=== PATIENT | male | born 1955 | race Caucasian/White ===

== ENCOUNTER 2017-06-23 10:40 | Day surgery (SDC) | payer BC ==
[2017-06-20 11:23] VITALS: BMI 36.6
[2017-06-23 10:55] VITALS: TEMP 97.5
[2017-06-23] MEDS ORDERED: LIDOCAINE 1% 20 ML VIAL (10MG/ML) FOR IV START INTRADERMA ONE (11:06)
[2017-06-23] MEDS: LACTATED RINGERS 1,000 ML IV SCH ×2 (11:06→11:38)
[2017-06-23] MEDS ORDERED: LIDOCAINE 1% INJ 10MG/ML (20 ML MDV) ONE (11:40)
[2017-06-23] MEDS ORDERED: MIDAZOLAM 2 MG/2 ML VIAL ONE (11:40)
[2017-06-23] MEDS ORDERED: PROPOFOL 10 MG/ML 20 ML VIAL IV ONE (11:40)
--- NOTE | 2017-06-23 12:08 | P.PCN ---
Date of Procedure: 06/23/17 Preoperative Diagnosis: Postoperative Diagnosis: Procedure(s) Performed: Procedure: Total colonoscopy. Preoperative diagnosis: Screening for neoplasia. Postoperative diagnosis: 1. Diverticulosis with no evidence of acute diverticulitis or strictures. 2. Internal hemorrhoids without evidence of bleeding. Preparation: HalfLytely prep. Sedation: Was provided by anesthesia. Brief clinical history: The patient is a 62-year-old male who was scheduled for this evaluation because of family history of colon cancer in his father who was diagnosed at age 55. The patient had colonoscopy in February 2012 that showed sigmoid diverticulosis. At this time, he has no abdominal complaints, bleeding or anemia. Procedure: With the patient on his left lateral decubitus position and after informed consent and adequate sedation, the perianal area was inspected and it did not show any fissures or fistulas. There were no masses felt on digital rectal examination. The Olympus CFQ 160L video colonoscope was then inserted in the rectum in the usual fashion and advanced to the cecum. There were multiple diverticular orifices seen scattered along the length of the bowel more evident on the left side with no evidence of acute diverticulitis or strictures. No polyps or tumors were seen. I retroflexed the endoscope in the rectum before the endoscope was withdrawn. Low-grade internal hemorrhoids were noted with no evidence of bleeding. The patient tolerated the procedure well. Plan: The patient was reassured. Discussed dietary measures. I recommended repeat exam in 5 years. He will follow up with you as planned. Implants: Indications for Procedure: Operative Findings: Description of Procedure:
[2017-06-23 12:25] VITALS: BP 122/74; PULSE 65; RESP 18
== END 2017-06-23 12:45 | disposition home or self-care (01) ==
LOC: ORWHC2ENDO 10:40
DX: Z12.11 Encounter for screening for malignant neoplasm of colon (principal); K57.30 Diverticulosis of large intestine without perforation or abscess without bleeding; K64.8 Other hemorrhoids; Z80.0 Family history of malignant neoplasm of digestive organs; K21.9 Gastro-esophageal reflux disease without esophagitis; G47.33 Obstructive sleep apnea (adult) (pediatric); M10.9 Gout, unspecified; I10 Essential (primary) hypertension; E66.9 Obesity, unspecified; Z85.819 Personal history of malignant neoplasm of unspecified site of lip, oral cavity, and pharynx; Z99.89 Dependence on other enabling machines and devices; Z79.899 Other long term (current) drug therapy

== ENCOUNTER 2019-07-02 06:14 | Day surgery (SDC) | payer BC ==
[2019-07-01 09:06] VITALS: BMI 35.2
[~2019-07-02 06:14] MED LIST: DEXAMETHASONE SOD PHOSPHATE 10 MG/ML 1 ML VIAL IV ONE; HEPARIN SODIUM,PORCINE 5,000 UNIT/ML 1 ML VIAL SQ ONE; HYDROmorphone 0.5 MG/0.5 ML SYRINGE IVP PRN; LACTATED RINGERS 1,000 ML IV SCH; MIDAZOLAM 2 MG/2 ML VIAL IV PRN; ONDANSETRON 4 MG/2 ML VIAL IVP ONE; SCOPOLAMINE 1.5MG/72HR PATCH TRANSDERM ONE
[2019-07-02] MEDS ORDERED: LIDOCAINE 1% 20 ML VIAL (10MG/ML) FOR IV START INTRADERMA ONE (07:01)
--- NOTE | 2019-07-02 07:39 | P.GSHP ---
History of Present Illness H&P Date: 07/02/19 Chief Complaint: Umbilical hernia Patient seen in the office in April. Patient has complaints of a painful hernia at the umbilicus. This does not fluctuate significantly in size throughout the day. This has gradually increased in size however over the last several months. No nausea or vomiting. Past Medical History Past Medical History: Cancer, GERD/Reflux, Prostate Disorder, Sleep Apnea/CPAP/BIPAP Additional Past Medical History / Comment(s): no current cpap,hayfever,gout, ca lip History of Any Multi-Drug Resistant Organisms: None Reported Past Surgical History: Tonsillectomy Additional Past Surgical History / Comment(s): lip sugery ca removed,sinus surg,hydrocele,eyelids Past Anesthesia/Blood Transfusion Reactions: No Reported Reaction Additional Past Anesthesia/Blood Transfusion Reaction / Comment(s): no hx blood transfusion Past Psychological History: No Psychological Hx Reported Smoking Status: Never smoker Past Alcohol Use History: Occasional Past Drug Use History: None Reported - Past Family History Father Family Medical History: Cancer Additional Family Medical History / Comment(s): colon Mother Family Medical History: Cancer Additional Family Medical History / Comment(s): breast Medications and Allergies Home Medications Medication Instructions Recorded Confirmed Type Allopurinol [Zyloprim] 300 mg PO DAILY 06/20/17 07/02/19 History Montelukast Sodium [Singulair] 10 mg PO QAM 06/20/17 07/02/19 History Terazosin HCl [Hytrin] 10 mg PO HS 06/20/17 07/02/19 History Ranitidine HCl 150 mg PO BID 07/01/19 07/02/19 History Allergies Allergy/AdvReac Type Severity Reaction Status Date / Time No Known Allergies Allergy Verified 07/01/19 09:00 Surgical - Exam Vital Signs Temp Pulse Resp BP Pulse Ox 97.8 F 56 L 18 134/78 97 07/02/19 06:55 07/02/19 06:55 07/02/19 06:55 07/02/19 06:55 07/02/19 06:55 Physical exam: General: Well-developed, well-nourished HEENT: Normocephalic, sclerae nonicteric Abdomen: Nontender, nondistended, incarcerated umbilical hernia Extremities: No edema Neuro: Alert and oriented Assessment and Plan (1) Incarcerated umbilical hernia Narrative/Plan: Will proceed with repair incarcerated umbilical hernia with probable mesh. Risks of bleeding, infection, recurrence, bladder and bowel injury, numbness, nerve injury were discussed with the patient. The patient understands and wishes to proceed. Current Visit: Yes Status: Acute Code(s): K42.0 - UMBILICAL HERNIA WITH OBSTRUCTION, WITHOUT GANGRENE SNOMED Code(s): 582649474
[2019-07-02] MEDS ORDERED: NEOSTIGMINE 1 MG/ML 10 ML VIAL ONE (07:58)
[2019-07-02] MEDS ORDERED: MIDAZOLAM 2 MG/2 ML VIAL ONE (07:58)
[2019-07-02] MEDS ORDERED: LIDOCAINE 1% INJ 10MG/ML (20 ML MDV) ONE (07:58)
[2019-07-02] MEDS ORDERED: SUCCINYLCHOLINE CHLORIDE VIAL 200 MG/10 ML VIAL IV ONE (07:58)
[2019-07-02] MEDS ORDERED: fentaNYL (PF) 50 MCG/ML 2 ML AMP ONE (07:58)
[2019-07-02] MEDS ORDERED: ROCURONIUM BROMIDE 10 MG/ML 10 ML VIAL IV ONE (07:58)
[2019-07-02] MEDS ORDERED: GLYCOPYRROLATE 0.2 MG/ML 2 ML VIAL ONE (07:58)
[2019-07-02] MEDS ORDERED: PROPOFOL 10 MG/ML 20 ML VIAL IV ONE (07:58)
[2019-07-02] MEDS ORDERED: BUPIVACAINE (PF) 0.25% 30 ML VIAL SQ ONE (08:28)
[2019-07-02] MEDS ORDERED: HYDROcodone/APAP 5-325MG 1 EACH TAB PO PRN (09:08)
[2019-07-02] MEDS ORDERED: NALOXONE 0.4 MG/ML 1 ML VIAL IV PRN (09:08)
--- NOTE | 2019-07-02 09:10 | P.OP ---
Date of Procedure: 07/02/19 Procedure(s) Performed: PREOPERATIVE DIAGNOSIS: Incarcerated umbilical hernia POSTOPERATIVE DIAGNOSIS: Same PROCEDURE: Umbilical herniorrhaphy with mesh SURGEON: Sharon EBL: Minimal ANESTHESIA: General COMPLICATIONS: None OPERATIVE PROCEDURE: The patient was placed in the operating table in the supine position. A periumbilical incision was made using the scalpel. The subcutaneous tissues were dissected bluntly. The hernia sac was identified. The umbilical attachments to the fascia were divided using electrocautery. The hernia sac was excised. The hernia sac was sent to pathology. The preperitoneal space was bluntly dissected. We did not enter the peritoneal cavity. The 4.3 cm ventral ex mesh was placed beneath the fascia and sutured in place using trans-fascial 0 Ethibond sutures. The defect was closed using interrupted vest over pants 0 Ethibond sutures. The subcutaneous tissues were reapproximated using inverted 3-0 Vicryl sutures. The umbilicus was tacked back down to the fascia using a 3-0 Vicryl suture. The skin was closed using 4-0 Monocryl sutures. Skin glue and sterile dressings were then applied. DISPOSITION: Stable to recovery room
[2019-07-02 09:17] VITALS: TEMP 97.7
[2019-07-02] MEDS ORDERED: LACTATED RINGERS 1,000 ML IV ONE ×2 (09:45)
[2019-07-02] MEDS ORDERED: KETOROLAC 30 MG/ML 1 ML VIAL IVP ONE (09:49)
[2019-07-02] MEDS ORDERED: HYDROcodone/APAP 5-325MG 1 EACH TAB PO ONE (10:27)
[2019-07-02 10:43] VITALS: BP 117/74; PULSE 59; RESP 16
== END 2019-07-02 11:30 | disposition home or self-care (01) ==
LOC: OR 06:14
PROVIDERS: ATTEND Surgery
DX: K42.0 Umbilical hernia with obstruction, without gangrene (principal); K21.9 Gastro-esophageal reflux disease without esophagitis; G47.30 Sleep apnea, unspecified; M10.9 Gout, unspecified; N40.0 Benign prostatic hyperplasia without lower urinary tract symptoms; Z85.828 Personal history of other malignant neoplasm of skin; Z79.899 Other long term (current) drug therapy; Z91.048 Other nonmedicinal substance allergy status
CPT/HCPCS: 88302; 49587; C1781; J2250; J0330; J1644; J1100; J2710; J0690; J2405; J2001; J3010; J1885; J2704; J1170

== ENCOUNTER → 2021-03-15 | Outpatient (CLI) | payer BC ==
--- NOTE | 2021-03-15 08:53 | US ---
EXAMINATION TYPE: US carotid duplex BILAT DATE OF EXAM: 03/15/2021 COMPARISON: NONE CLINICAL HISTORY: R42. Dizziness. Dizziness x couple weeks EXAM MEASUREMENTS: RIGHT: Peak Systolic Velocity (PSV) cm/sec ----- Right CCA: 54.2 ----- Right ICA: 55.2 ----- Right ECA: 83.0 ICA/CCA ratio: 1.0 RIGHT: End Diastole cm/sec ----- Right CCA: 14.0 ----- Right ICA: 18.7 ----- Right ECA: 12.1 LEFT: Peak Systolic Velocity (PSV) cm/sec ----- Left CCA: 68.0 ----- Left ICA: 58.3 ----- Left ECA: 78.2 ICA/CCA ratio: 0.9 LEFT: End Diastole cm/sec ----- Left CCA: 14.1 ----- Left ICA: 23.3 ----- Left ECA: 7.3 VERTEBRALS (direction of flow): Right Vertebral: Antegrade Left Vertebral: Antegrade Rhythm: Normal No elevated velocities, no significant stenosis. IMPRESSION: 1. No significant hemodynamic stenosis as visualized. Criteria for Assigning % of Stenosis / Diameter reduction (Estimation based on the indirect measurements of the internal carotid artery velocities (ICA PSV). 1. Normal (no stenosis)=ICA PSV < 125 cm/s: ratio < 2.0: ICA EDV<40 cm/s. 2. Less than 50% stenosis=ICA PSV < 125 cm/s: ratio < 2.0: ICA EDV<40 cm/s. 3. 50 to 69% stenosis=ICA PSV of 125 to 230 cm/s: ration 2.0 ? 4.0: ICA EDV 40-100 cm/s. 4. Greater than 70% stenosis to near occlusion= ICA PSV > 230 cm/s: ratio > 4.0: ICA EDV > 100 cm/s. 5. Near occlusion= ICA PSV velocities may be low or undetectable: variable ratio and ICA EDV. 6. Total occlusion=unable to detect flow.
== END | disposition home or self-care (01) ==
LOC: RADUSWWP 08:06
PROVIDERS: ATTEND Family Medicine
DX: R42 Dizziness and giddiness (principal)
CPT/HCPCS: 93880

== ENCOUNTER 2022-03-20 08:58 | Day surgery (SDC) | payer BC ==
[2022-03-15 14:22] VITALS: BMI 35.2
[~2022-03-20 08:58] MED LIST changes: -DEXAMETHASONE SOD PHOSPHATE 10 MG/ML 1 ML VIAL IV ONE; -HEPARIN SODIUM,PORCINE 5,000 UNIT/ML 1 ML VIAL SQ ONE; -HYDROmorphone 0.5 MG/0.5 ML SYRINGE IVP PRN; -MIDAZOLAM 2 MG/2 ML VIAL IV PRN; -ONDANSETRON 4 MG/2 ML VIAL IVP ONE; -SCOPOLAMINE 1.5MG/72HR PATCH TRANSDERM ONE
[2022-03-20 09:31] VITALS: TEMP 99.1
[2022-03-20] MEDS ORDERED: LIDOCAINE 1% (10MG/ML) FOR IV START INTRADERMA ONE (09:44)
[2022-03-20] MEDS ORDERED: PROPOFOL 10 MG/ML 20 ML VIAL IV ONE (09:55)
--- NOTE | 2022-03-20 10:15 | P.PCN ---
Date of Procedure: 03/20/22 Procedure(s) Performed: BRIEF HISTORY: Patient is a 66-year-old pleasant white male scheduled for an elective colonoscopy as a part of screening for colon cancer. He also has family history of colon cancer diagnosed in her father at age 54. PROCEDURE PERFORMED: Colonoscopy with biopsy. PREOPERATIVE DIAGNOSIS: Screening for colon cancer/family history of colon cancer. IV sedation per Anesthesia. PROCEDURE: After informed consent was obtained, the patient, was brought into the endoscopy unit. IV sedation was administered by Anesthesia under continuous monitoring. Digital rectal examination was normal. Initially the Olympus CF-160 flexible video colonoscope was then inserted in the rectum, gradually advanced into the cecum without any difficulty. Careful examination was performed as the scope was gradually being withdrawn. Ileocecal valve and the appendiceal orifice were visualized and appeared normal. Prep was excellent. Mucosa of the cecum, had a 3 mm polyp that was removed by cold biopsy. Rest of the ascending colon, transverse colon, descending colon, sigmoid colon, and rectum appeared normal. The distal rectum there was a 4 mm polyp that was moved by cold biopsy. Scattered sigmoid diverticulosis. Retroflexion was performed in the rectum and no lesions were seen. The patient tolerated the procedure well. IMPRESSION: 3 mm cecal polyp status post cold biopsy 4 mm rectal polyp status post cold biopsy Scattered sigmoid diverticulosis RECOMMENDATIONS: Findings of this examination were discussed with the patient as well as a his family. He was advised to follow with the biopsy results. If the biopsy reveals adenoma he can have a repeat colonoscopy in 5 years..
[2022-03-20 10:28] VITALS: RESP 20
[2022-03-20 10:47] VITALS: BP 135/83; PULSE 52
== END 2022-03-20 10:48 | disposition home or self-care (01) ==
LOC: ORWHC2ENDO 08:58
PROVIDERS: ATTEND Internal Medicine Gastroenterology
DX: Z12.11 Encounter for screening for malignant neoplasm of colon (principal); D12.8 Benign neoplasm of rectum; K57.30 Diverticulosis of large intestine without perforation or abscess without bleeding; Z80.0 Family history of malignant neoplasm of digestive organs; G47.33 Obstructive sleep apnea (adult) (pediatric); K21.9 Gastro-esophageal reflux disease without esophagitis; Z79.899 Other long term (current) drug therapy
CPT/HCPCS: 88305; 45380; J2704

== ENCOUNTER → 2025-04-27 | Outpatient (CLI) | payer MEDICARE ==
--- NOTE | 2025-04-27 10:20 | US ---
EXAMINATION TYPE: US abdomen complete DATE OF EXAM: 04/27/2025 COMPARISON: NONE CLINICAL INDICATION: Male, 69 years old with history of R94.5 ABNORMAL LFT'S; TECHNIQUE: Grayscale and color Doppler imaging of the abdomen was performed. FINDINGS: EXAM MEASUREMENTS: Liver Length: 15.2cm Gallbladder Wall: 0.2cm CBD: 0.3cm color Doppler imaging was utilized to isolate the common bile duct for measurement. Spleen: 17.0x7.4x7.3cm Right Kidney: 118x6.7x6.4cm Left Kidney: 12.5x4.7x5.4cm EXECUTIVE COACH NOTES: very limited scan due to overlying bowel/gas & pt body habitus Pancreas: Obscured by bowel gas Liver: Increased attenuation, decreased visualization of vessels suggestive of fatty infiltrate, dif ficult to penetrate * Hyperechoic area seen within RT lobe: 6.6x6.4x6.7cm, slight vascularity surrounding area * Hypoechoic area seen within RT lobe: 1.4x1.2x1.2cm ?possibly correlating to fatty liver * Cystic area seen within Lt lobe: 2.2x2.1x1.8cm Gallbladder: No stones seen, slightly obscured by bowel Evidence for sonographic Bunn's sign: No CBD: partially obscured by bowel, wnl as best seen Spleen: Enlarged, Hypoechoic area seen adj to spleen: 2.0x1.8x2.0cm compatible with splenule. Right Kidney: wnl, No hydronephrosis, calculi or masses seen Left Kidney: Anechoic area seen: 1.6x1.5x1.5cm Upper IVC: wnl at prox, mid/distal: obscured by bowel Abd Aorta: not well visualized, wnl as best visualized, partially obscured by bowel IMPRESSION: 1. Hepatic mass within the right hepatic lobe. Further evaluation with MRI liver mass protocol recom mended. 2. Hepatic steatosis. 3. Hepatic cyst measuring up to 2.2 cm. 4. Indeterminate hypoechoic lesion measuring up to 1.4 centers attention follow-up MRI for findings in #1. [facility], , 04/27/2025 10:18 AM
== END | disposition home or self-care (01) ==
LOC: RADUSWWP 08:36
PROVIDERS: ATTEND Family Medicine
DX: K76.0 Fatty (change of) liver, not elsewhere classified (principal); K76.89 Other specified diseases of liver; R16.0 Hepatomegaly, not elsewhere classified; R94.5 Abnormal results of liver function studies
CPT/HCPCS: 76700

== ENCOUNTER → 2025-05-24 | Outpatient (CLI) | payer MEDICARE ==
--- NOTE | 2025-05-26 09:33 | MR ---
EXAMINATION TYPE: MR abdomen wo/w con DATE OF EXAM: 05/24/2025 6:48 PM INDICATION: Patient age:Male; 69 years old; Reason for study: D49.0 NEOPLASM OF UNSPECIFIED BEHAVIOR OF DIGESTIV; PHH. COMPARISON: Abdominal ultrasound 04/27/2025. TECHNIQUE: Multiplanar multi-sequence imaging was performed without and with IV contrast. The patie nt was given 11 ccs of Gadobutrol intravenously and dynamic imaging was performed. Post IV contrast s ubtraction images were also submitted for review. FINDINGS: LOWER CHEST: Cardiomegaly. Elevation of the right hemidiaphragm. ABDOMEN Liver: Subtle surface nodularity suggested. Diffuse fatty infiltration. Dominant right hepatic lobe s egment 6/7 heterogenous enhancing mass with regions of internal fluid. This measures 7.8 x 7.2 cm (se velia 701, image 68). There is an adjacent abutting peripheral enhancing lesion more anteriorly within segment 8 measuring 2.8 cm (series 701, image 69). This demonstrates stricture diffusion. Additional segment 8 peripherally enhancing lesion with washout measuring 2.2 cm (series 1101, image 583). Segm ent 4B enhancing 0.8 cm focus with washout (series 1102, image 104). 1.2 cm T2 hyperintense periphera lly enhancing cystic lesion within segment 7. Portal venous system is patent. Gallbladder and Bile ducts: Unremarkable. Pancreas: Unremarkable. Spleen: Enlarged measuring 15.6 cm in CC dimension. Adrenal glands: Unremarkable. Kidneys: No hydronephrosis. Simple left renal lower pole thin-walled nonenhancing cyst measuring 1.8 cm. Stomach and Bowel: No evidence of bowel obstruction. Colonic diverticulosis without evidence for acut e diverticulitis. Peritoneum: No evidence of pneumoperitoneum or free fluid. There are 2 abutting enlarged peripheral enhancing centrally necrotic appearing masses between the pancreatic head and IVC measuring 9.0 x 4.7 cm (series 701, image 41). Demonstrate restricted diffusion. Several enlarged gastrohepatic and efra portal lymph nodes identified measuring up to 1.6 cm. Few subcentimeter paraesophageal lymph nodes id entified. Vasculature: Unremarkable. No aortic aneurysm. Abdominal wall: Unremarkable. Musculoskeletal: The osseous structures appear intact. IMPRESSION: 1. Few hepatic lesions with a dominant mass measuring up to 7.8 cm corresponding to prior ultrasound . Subtle surface nodularity to the liver suggesting possible underlying cirrhosis. These findings are concerning for metastasis and/or hepatocellular carcinoma with metastasis. Tissue sampling is recomm ended. 2. Additionally there are 2 large necrotic appearing periportal masses likely representing metastasi s with additional smaller but enlarged gastrohepatic lymph nodes likely representing metastasis. 3. Splenomegaly. [facility], , 05/26/2025 9:31 AM
== END | disposition home or self-care (01) ==
LOC: RADMRIMAIN 17:48
PROVIDERS: ATTEND Family Medicine
DX: D49.0 Neoplasm of unspecified behavior of digestive system (principal); K76.89 Other specified diseases of liver; R16.1 Splenomegaly, not elsewhere classified
CPT/HCPCS: 74183; A9585

== ENCOUNTER → 2025-06-09 | Outpatient (CLI) | payer MEDICARE ==
[2025-06-09 15:29] LABS: HCT 42.9 % (39.6-50.0); HGB 14.1 g/dL (13.0-17.0); MCH 32.2 pg (27.0-32.0); MCHC 32.9 g/dL (32.0-37.0); MCV 97.9 FL (80.0-97.0); NRBC Per 100 WBC 0 X 10*3/uL (0.00-0.01); Platelet Count 98 X 10*3/uL (140-440); RBC 4.38 X 10*6/uL (4.40-5.60); RDW 13.3 % (11.5-14.5); WBC 7.00 X 10*3/uL (4.50-10.00)
[2025-06-09 15:47] LABS: ALT 51 U/L (10-49); AST 49 U/L (14-35); Albumin 3.8 g/dL (3.8-4.9); Albumin/Globulin Ratio 1.31 Ratio (1.60-3.17); Alkaline Phosphatase 105 U/L (41-126); Anion Gap 9.80 mmol/L (4.00-12.00); BUN/Creat Ratio 17.44 Ratio (12.00-20.00); Blood Urea Nitrogen 15.7 mg/dL (9.0-27.0); Calcium 9.2 mg/dL (8.7-10.3); Carbon Dioxide 25.2 mmol/L (21.6-31.8); Chloride 107 mmol/L (96-109); Globulin 2.9 g/dL (1.6-3.3); Glucose 121 mg/dL (70-110); Potassium 4.5 mmol/L (3.5-5.5); Sodium 142 mmol/L (135-145); Total Protein 6.7 g/dL (6.2-8.2)
[2025-06-09 15:54] LABS: Alpha Fetoprotein, Tumor Mkr 3.0 ng/mL (0.00-7.90)
== END | disposition home or self-care (01) ==
LOC: LABWHC1 09:15
PROVIDERS: ATTEND Internal Medicine Gastroenterology
DX: R16.0 Hepatomegaly, not elsewhere classified (principal)
CPT/HCPCS: 36415; 80053; 82105; 85027; 86301

== ENCOUNTER → 2025-06-09 | Outpatient (CLI) | payer MEDICARE ==
--- NOTE | 2025-06-11 17:47 | PE ---
EXAMINATION TYPE: PET CT fusion skull to thigh DATE OF EXAM: 06/09/2025 CLINICAL INDICATION:Male, 69 years old with history of R94.5 abnormal liver function results; TECHNIQUE: Following the intravenous administration of 11.85 mCi of F-18 FDG, whole body images are performed from the skull base to the midthigh. Images are reviewed on the computer in the coronal, axial, and sagittal planes. Reconstructed rotating images are created on independent workstation and reviewed on the computer. A non-contrast CT is performed in conjunction with the PET scan. Glucose level 130 mg/dL CT DLP: 1087 mGycm, Automated exposure control for dose reduction was used. COMPARISON: CT None, PET/CT None, MRI: 05/24/2025 FINDINGS: Mediastinal SUV mean is 2.7. Hepatic parenchyma SUV mean is 2.7. SKULL BASE AND NECK: No suspicious radiotracer activity. CHEST, MEDIASTINUM, AND HILAR REGION: No suspicious radiotracer activity. ABDOMEN AND PELVIS: Known right hepatic lobe lesions are redemonstrated but poorly visualized due to lack of intravenous contrast. There is focal activity within the large dominant right hepatic lobe lesion. Demonstrates a maximum SUV of 6.8. Additional focus within the abutting anterior lesion with a max SUV of 8.7. Rede monstration of 2 large posterior periportal abutting lesions measuring 4.6 and 5.4 cm. These demonstr ate peripheral FDG activity with a metabolic central course representing necrosis. Demonstrates a max imum SUV of 14.7. Previously seen prominent gastrohepatic lymph nodes do not demonstrate FDG activity above background. MUSCULOSKELETAL STRUCTURES: No suspicious radiotracer activity. OTHER CT: Mucous retention cysts with mucosal thickening in bilateral maxillary sinuses. Mild mucosal thickening of the paranasal sinuses. Bilateral carotid bifurcation calcifications. Mild bilateral gy necomastia. Mild cardiomegaly. Mild coronary arterial calcifications. Mild atherosclerotic calcificat ion of the aorta and its branches. Elevation of the right hemidiaphragm. Splenomegaly redemonstrated measuring 15.4 cm in AP dimension. Distal colonic diverticulosis without evidence for acute diverticu litis. Pelvic phleboliths. Small fat filled left inguinal hernia. Multilevel anterior osteophytosis o f the spine. IMPRESSION: 1. Right hepatic lobe lesions demonstrate increased FDG activity again concerning for malignancy. Co nsider tissue sampling. 2. Abutting necrotic masses within the periportal region redemonstrated with peripheral FDG activity . These are highly concerning for metastasis. [facility], , 06/11/2025 5:45 PM
== END | disposition home or self-care (01) ==
LOC: RADPETMAIN 07:37
PROVIDERS: ATTEND Family Medicine
DX: R94.5 Abnormal results of liver function studies (principal); R93.2 Abnormal findings on diagnostic imaging of liver and biliary tract; K76.89 Other specified diseases of liver
CPT/HCPCS: 78815; A9552